=== PATIENT | male | born 1955 | race Hispanic/Latino ===

== ENCOUNTER 2023-03-10 19:18 | Emergency (ER) | payer MEDICARE ==
[~2023-03-10] VITALS: Ht 175.3 cm; Wt 90.7 kg
[~2023-03-10 19:18] MED LIST: FENOFIBRATE145 MG PO; IBUPROFEN400 MG PO; LISINOPRIL-HCT1 EACH PO; MELOXICAM7.5 MG PO; XARELTO10 MG PO
[2023-03-10] MEDS ORDERED: DEXAMETHASONE SOD PHOS 10 MG/1 ML VIAL ONE (19:43)
[2023-03-10] MEDS ORDERED: DEXAMETHASONE SOD PHOS 10 MG/1 ML VIAL IM ONE (19:45)
[2023-03-10] MEDS ORDERED: KETOROLAC TROMETHAMINE 60 MG/2 ML VIAL IM ONE (19:45)
[2023-03-10] MEDS ORDERED: METHYLPREDNISOLONE SOD SUCC 125 MG/2ML VIAL IM ONE (19:45)
[2023-03-10] MEDS ORDERED: MEDROL4 M2 PO (19:47)
[2023-03-10 21:41] VITALS: BP 130/84; PULSE 74; RESP 18; TEMP 98; O2SAT 100
== END 2023-03-10 21:21 | disposition home or self-care (01) ==
LOC: ER 19:22
DX: M25.552 Pain in left hip (principal); I10 Essential (primary) hypertension; E78.5 Hyperlipidemia, unspecified
CPT/HCPCS: 73502; 99283; J1100; J1885